=== PATIENT | female | born 1995 | race Caucasian/White ===

== ENCOUNTER 2017-01-29 17:39 | Emergency (ER) | payer OTHER ==
--- NOTE | 2017-01-29 18:58 | RAD ---
HISTORY: Chest pain. No COMPARISON: 12/07/2015. TECHNIQUE: Chest PA and lateral FINDINGS: LUNGS: No active pulmonary disease. PLEURA: No significant pleural effusion identified. No pneumothorax apparent. CARDIOVASCULAR: Normal. OSSEOUS STRUCTURES: No significant abnormalities. VISUALIZED UPPER ABDOMEN: Normal. OTHER FINDINGS: None. IMPRESSION: No active disease. No significant interval change compared to the prior examination(s).
--- NOTE | 2017-01-29 19:27 | C.PDOC ---
History Of Present Illness 21 y/o female presents to ED with complaint of left sided chest pain associated with palpitations and breast pain for 3 days. Patient describes pain as constant , localized to left parasternal area, and worsening today. Patient states she cannot lay on her stomach due to palpitations. 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 Patient denies any injuries. Otherwise, denies shortness of breath, nausea, vomiting, diaphoresis, dizziness, or other associated symptoms. Time Seen by Provider: 01/29/17 18:29 Chief Complaint (Nursing): Chest Pain History Per: Patient History/Exam Limitations: no limitations Onset/Duration Of Symptoms: Days (3) Current Symptoms Are (Timing): Worse Quality: "Pain" Associated Symptoms: denies: Nausea, Diaphoresis Recent travel outside of the [place]: No Past Medical History Reviewed: Historical Data, Nursing Documentation, Vital Signs Vital Signs: Last Vital Signs Temp 97.9 F 01/29/17 17:48 Pulse 96 H 01/29/17 17:48 Resp 16 01/29/17 17:48 BP 127/84 01/29/17 17:48 Pulse Ox 98 01/29/17 19:30 - Medical History PMH: Anemia Family History: States: Unknown Family Hx - Social History Hx Tobacco Use: No Hx Alcohol Use: No Hx Substance Use: No - Immunization History Hx Tetanus Toxoid Vaccination: No Hx Influenza Vaccination: No Hx Pneumococcal Vaccination: No Review Of Systems Except As Marked, All Systems Reviewed And Found Negative. Constitutional: Negative for: Fever, Chills Cardiovascular: Positive for: Chest Pain, Palpitations Respiratory: Negative for: Cough, Shortness of Breath Gastrointestinal: Negative for: Nausea, Vomiting Skin: Negative for: Rash Physical Exam - Physical Exam Appears: Non-toxic, No Acute Distress Skin: Normal Color, Warm, Dry Head: Atraumatic, Normacephalic Oral Mucosa: Moist Chest: Symmetrical, Tenderness (left chest wall, deep, no breast tenderness) Cardiovascular: Rhythm Regular Respiratory: Normal Breath Sounds, No Rales, No Rhonchi, No Wheezing Gastrointestinal/Abdominal: Soft, No Tenderness Back: Normal Inspection Extremity: Normal ROM, Capillary Refill (< 2 sec.) Neurological/Psych: Oriented x3, Normal Speech, Normal Cognition ED Course And Treatment - Laboratory Results Result Diagrams: 01/29/17 19:31 01/29/17 19:31 Lab Interpretation: Normal ECG: Interpreted By Me ECG Rhythm: Sinus Rhythm ECG Interpretation: No Acute Changes O2 Sat by Pulse Oximetry: 98 (RA) Pulse Ox Interpretation: Normal - Radiology CXR: Interpreted by Me CXR Interpretation: Yes: No Acute Disease Progress Note: Treated with Toradol. EKG, labs ordered and reviewed. Reevaluation Time: 20:59 Reassessment Condition: Improved (after Toradol.) Disposition Counseled Patient/Family Regarding: Studies Performed, Diagnosis, Need For Followup - Disposition Referrals: [facility] [Outside] Disposition: HOME/ ROUTINE Disposition Time: 21:02 Condition: IMPROVED Additional Instructions: Take Advil 2-3 tablets every 6 hours with food if needed for pain. Instructions: Chest Wall Pain (ED) Print Language: ROMANIAN - Clinical Impression Clinical Impression: Chest wall pain - Scribe Statement The provider has reviewed the documentation as recorded by the Scribe Blake Bush Provider Attestation: Blake Bush Provider Scribe Attestation: All medical record entries made by the Scribe were at my direction and personally dictated by me. I have reviewed the chart and agree that the record accurately reflects my personal performance of the history, physical exam, medical decision making, and the department course for this patient. I have also personally directed, reviewed, and agree with the discharge instructions and disposition.
[2017-01-29 19:38] LABS: BASO % 0.6 % (0.0-2.0); EOS # 0.2 K/uL (0.0-0.7); EOS % 2.8 % (0.0-4.0); HEMATOCRIT 37.1 % (34.0-47.0); LYMPH % 26.1 % (20.0-40.0); MEAN CORPUSCULAR HEMOGLOBIN 29.9 pg (27.0-31.0); MEAN CORPUSCULAR HGB CONC 33.6 g/dL (33.0-37.0); MEAN PLATELET VOLUME 7.6 fL (7.2-11.7); MONO # 0.7 K/uL (0.0-0.8); MONO % 9.5 % (0.0-10.0); RED CELL DISTRIBUTION WIDTH 12.3 % (11.5-14.5); WHITE BLOOD COUNT 7.7 K/uL (4.8-10.8)
[2017-01-29 19:44] LABS: CHLORIDE 95 mmol/L (98-107); SODIUM 139 mmol/L (132-148)
[2017-01-29 19:45] LABS: POTASSIUM 3.3 mmol/L (3.6-5.2)
[2017-01-29 19:47] LABS: ALB/GLOB RATIO 1.1 (1.0-2.1); ALKALINE PHOSPHATASE 56 U/L (38-126); ALT/SGPT 38 U/L (9-52); AST/SGOT 26 U/L (14-36); BILIRUBIN,TOTAL 0.3 mg/dL (0.2-1.3); BLOOD UREA NITROGEN 14 mg/dL (7-17); CARBON DIOXIDE 29 mmol/L (22-30); GFR AFRICAN-AMERICAN > 60; GLUCOSE,RANDOM 91 mg/dL (65-105); TOTAL PROTEIN 8.1 g/dL (6.3-8.3)
[2017-01-29 21:10] LABS: URINE BACTERIA OCC (<OCC); URINE BILIRUBIN NEGATIVE (NEGATIVE); URINE BLOOD NEGATIVE (NEGATIVE); URINE COLOR Yellow (YELLOW); URINE GLUCOSE (UA) NORMAL (Normal); URINE KETONE NEGATIVE (NEGATIVE); URINE LEUKOCYTE ESTERASE NEG Leu/uL (Negative); URINE PROTEIN NEGATIVE (NEGATIVE); URINE UROBILINOGEN NORMAL mg/dL (0.2-1.0)
[2017-01-29 21:15] VITALS: BP 118/81; PULSE 88; RESP 20; TEMP 98.1; O2SAT 100
[2017-01-29 21:38] LABS: FREE T4 0.61 ng/dL (0.78-2.19)
[2017-01-29 21:52] LABS: THYROID STIMULATING HORMONE 10.8 mIU/L (0.46-4.68)
== END 2017-01-29 21:26 | disposition home or self-care (01) ==
LOC: C.ER 17:39
DX: R07.89 Other chest pain (principal)